=== PATIENT | female | born 1950 | race American Indian/Alaskan Native ===

== ENCOUNTER 2016-11-07 18:46 | Emergency (ER) | payer OTHER ==
[~2016-11-07] VITALS: Ht 154.9 cm; Wt 45.4 kg
[2016-11-07 20:21] VITALS: BP 108/42
[2016-11-07] MEDS ORDERED: HYDROmorphone HCL 2 MG/ML VL IM ONE (21:45)
[2016-11-07] MEDS ORDERED: ONDANSETRON HCL 4 MG/2 ML VIAL IM ONE (21:45)
== END 2016-11-07 22:18 | disposition home or self-care (01) ==
LOC: ER 18:47
DX: S13.9XXA Sprain of joints and ligaments of unspecified parts of neck, initial encounter (principal); S33.5XXA Sprain of ligaments of lumbar spine, initial encounter; S46.912A Strain of unspecified muscle, fascia and tendon at shoulder and upper arm level, left arm, initial encounter; V49.3XXA Car occupant (driver) (passenger) injured in unspecified nontraffic accident, initial encounter; Y93.89 Activity, other specified; Y99.8 Other external cause status; Y92.89 Other specified places as the place of occurrence of the external cause
CPT/HCPCS: 72125; 72131; 73030; 96372; 99284; J1170; J2405

== ENCOUNTER 2017-08-01 23:29 | Inpatient (IN) | payer OTHER, MEDICAID ==
[~2017-08-01] VITALS: Ht 154.9 cm; Wt 51.1 kg
[2017-08-02 03:54] LABS: Basophils # (auto) 0 uL; Basophils % (auto) 0.2 % (0.0-2.0); Eosinophils # (auto) 0.1 uL; Eosinophils % (auto) 0.3 % (0.0-7.0); Hemoglobin 10.8 g/dL (12.2-16.2); Monocytes # (auto) 1.6 uL; Red Cell Distribution Width 16.1 % (11.8-14.3); White Blood Cell 22.7 10^3/uL (4.4-10.8)
[2017-08-02 03:57] LABS: Hematocrit 32.9 % (36.0-46.0); Lymphocytes # (auto) 1.6 uL; Mean Corpuscular Hemoglobin 26.9 pg (28.0-32.0); Mean Corpuscular Hgb Conc. 32.8 g/dL (32.0-36.0); Mean Corpuscular Volume 81.9 fL (80.0-100.0); Monocytes % (auto) 7.1 % (0.0-12.0); Neutrophils # (auto) 19.4 uL; Neutrophils % (auto) 85.4 % (37.0-80.0); Platelet Count (auto) 383 10^3/uL (140-450); Red Blood Cells 4.02 10^6/uL (4.0-5.20)
[2017-08-02] MEDS ORDERED: SODIUM CHLORIDE 0.9% 1,000 ML IV ONE (04:00)
[2017-08-02 04:08] LABS: Anion Gap 9 (5-15); Carbon Dioxide 24 mmol/L (21-32); Chloride 92 mmol/L (98-107); Potassium 3.4 mmol/L (3.5-5.1); Sodium 125 mmol/L (136-145)
[2017-08-02 04:09] LABS: Alanine Aminotransferase 32 U/L (13-56); Albumin 2.3 g/dL (3.4-5.0); Aspartate Aminotransferase 96 U/L (15-37); BUN/Creatinine Ratio 23.7; Blood Alcohol < 3.0 mg/dL (0-5); Blood Urea Nitrogen 28 mg/dL (7-18); GFR African American 59 mL/min; GFR Non-African American 49 mL/min; Glucose 99 mg/dL (74-106); Magnesium 2.4 mg/dL (1.6-2.6)
[2017-08-02 04:13] LABS: Alkaline Phosphatase 128 U/L (45-117); Bilirubin, Total 0.6 mg/dL (0.2-1.0); Total Protein 6.7 g/dL (6.4-8.2)
[2017-08-02] MEDS ORDERED: cefTRIAXone 1GM/10ml IVPUSH 10 ML IV ONE (06:00)
[2017-08-02 10:10] LABS: Urine Bacteria NONE SEEN /hpf (None Seen); Urine Blood 1+ /uL (Negative); Urine Specific Gravity 1.005 (1.001-1.035); Urine WBC 1 /hpf (0 - 5)
[2017-08-02 10:43] LABS: Alcohol, Urine < 3.0 mg/dL (0-5); Amphetamine Screen, Urine NEGATIVE (NEGATIVE); Barbiturate Scree,Urine NEGATIVE (NEGATIVE); Benzodiazephine Screen, Urine NEGATIVE (NEGATIVE); Cannabinoid Screen, Urine NEGATIVE (NEGATIVE); Cocaine Screen, Urine NEGATIVE (NEGATIVE); Opiate Scree,Urine POSITIVE (NEGATIVE); Phencyclidine Screen, Urine NEGATIVE (NEGATIVE)
[2017-08-02] MEDS ORDERED: AZITHROMYCIN 500MG/ 250ML 250 ML IV ONE (10:45)
[2017-08-02] MEDS: SODIUM CHLORIDE 0.9% 1,000 ML IV SCH ×2 (11:05→17:13)
[2017-08-02] MEDS ORDERED: ONDANSETRON HCL 4 MG/2 ML VIAL ONE (15:25)
[2017-08-02] MEDS: ONDANSETRON HCL 4 MG/2 ML VIAL IV PRN (15:31)
[2017-08-02] MEDS: HYDROcodone-ACET 10/325MG TAB PO PRN (19:20)
[2017-08-02 22:00] VITALS: BP 123/54
[2017-08-02] MEDS ORDERED: TEMAZEPAM 15 MG CAP PO PRN (22:15)
[2017-08-02] MEDS ORDERED: HYDROmorphone HCL 2 MG/ML VL IV ONE (22:15)
[2017-08-03] MEDS: HYDROcodone-ACET 10/325MG TAB PO PRN ×2 (01:39→09:02)
[2017-08-03 05:00] VITALS: BP 141/72
[2017-08-03 06:44] LABS: Eosinophils # (auto) 0 uL; Eosinophils % (auto) 0.1 % (0.0-7.0); Lymphocytes # (auto) 1.8 uL; Monocytes # (auto) 1.6 uL; Monocytes % (auto) 6.6 % (0.0-12.0)
[2017-08-03 06:48] LABS: Basophils # (auto) 0.1 uL; Basophils % (auto) 0.3 % (0.0-2.0); Hematocrit 30.6 % (36.0-46.0); Hemoglobin 10.5 g/dL (12.2-16.2); Lymphocytes % (auto) 7.6 % (10.0-50.0); Mean Corpuscular Hemoglobin 27.6 pg (28.0-32.0); Mean Corpuscular Hgb Conc. 34.2 g/dL (32.0-36.0); Mean Corpuscular Volume 80.7 fL (80.0-100.0); Neutrophils # (auto) 20.2 uL; Neutrophils % (auto) 85.4 % (37.0-80.0); Nucleated Red Blood Cells % 0.1 %; Platelet Count (auto) 454 10^3/uL (140-450); Red Cell Distribution Width 16.1 % (11.8-14.3); White Blood Cell 23.6 10^3/uL (4.4-10.8)
[2017-08-03 07:00] LABS: BUN/Creatinine Ratio 28.9; Bilirubin, Total 0.5 mg/dL (0.2-1.0); Calcium 7.8 mg/dL (8.5-10.1); Potassium 3.7 mmol/L (3.5-5.1); Total Protein 5.9 g/dL (6.4-8.2)
[2017-08-03 08:00] VITALS: BP 122/47
[2017-08-03] MEDS ORDERED: cefTRIAXone 1GM/10ml IVPUSH 10 ML IV SCH (09:00)
[2017-08-03] MEDS: AZITHROMYCIN 250 MG TAB PO SCH (09:03)
[2017-08-03] MEDS: SODIUM CHLORIDE 0.9% 1,000 ML IV SCH ×4 (09:07→19:52)
[2017-08-03] MEDS ORDERED: AZITHROMYCIN 500MG/ 250ML 250 ML IV SCH (10:00)
[2017-08-03 12:00] VITALS: BP 117/60
[2017-08-03] MEDS ORDERED: VANCOMYCIN PER PHARMACY 0 MG IV SCH (15:45)
[2017-08-03] MEDS ORDERED: SODIUM CHLORIDE 0.9% 1,000 ML IV ONE (16:00)
[2017-08-03] MEDS: HYDROmorphone HCL 2 MG/ML VL IV PRN ×2 (16:13→20:30)
[2017-08-03] MEDS ORDERED: HYDR-4798 PO (16:35)
[2017-08-03] MEDS ORDERED: ESCI5TAB PO (16:35)
[2017-08-03] MEDS ORDERED: BACL10TA PO (16:35)
[2017-08-03] MEDS ORDERED: GABA300C10 PO (16:35)
[2017-08-03] MEDS ORDERED: TEMA30CA PO (16:35)
[2017-08-03] MEDS ORDERED: MELO1TAB73 PO (16:35)
[2017-08-03 16:59] VITALS: BP 140/65
[2017-08-03] MEDS: VANCOMYCIN 1GM/250ML 250 ML IV SCH (17:32)
[2017-08-03] MEDS: PIPERACILLIN-TAZOB 3.375GM 50 ML IV SCH (18:40)
[2017-08-03 22:16] VITALS: BP 122/55
[2017-08-04] MEDS: PIPERACILLIN-TAZOB 3.375GM 50 ML IV SCH ×4 (00:05→18:06)
[2017-08-04] MEDS: HYDROmorphone HCL 2 MG/ML VL IV PRN ×5 (00:51→19:46)
[2017-08-04] MEDS: SODIUM CHLORIDE 0.9% 1,000 ML IV SCH ×3 (02:32→15:52)
[2017-08-04 05:51] VITALS: BP 127/64
[2017-08-04 06:33] LABS: Basophils # (auto) 0 uL; Basophils % (auto) 0.2 % (0.0-2.0); Eosinophils # (auto) 0 uL; Hematocrit 30.2 % (36.0-46.0); Hemoglobin 10.1 g/dL (12.2-16.2); Lymphocytes # (auto) 1.3 uL; Lymphocytes % (auto) 5.8 % (10.0-50.0); Mean Corpuscular Hemoglobin 27.6 pg (28.0-32.0); Mean Corpuscular Hgb Conc. 33.6 g/dL (32.0-36.0); Mean Corpuscular Volume 81.9 fL (80.0-100.0); Monocytes # (auto) 1.8 uL; Monocytes % (auto) 7.8 % (0.0-12.0); Neutrophils % (auto) 86.2 % (37.0-80.0); Platelet Count (auto) 515 10^3/uL (140-450); Red Blood Cells 3.68 10^6/uL (4.0-5.20); Red Cell Distribution Width 16.4 % (11.8-14.3); White Blood Cell 23.2 10^3/uL (4.4-10.8)
[2017-08-04 06:54] LABS: BUN/Creatinine Ratio 11.3; Bilirubin, Total 0.8 mg/dL (0.2-1.0); Calcium 7.5 mg/dL (8.5-10.1); Potassium 3.1 mmol/L (3.5-5.1)
[2017-08-04 09:00] VITALS: BP 110/61
[2017-08-04] MEDS ORDERED: POTASSIUM CHL 10% (20 MEQ/15ML) 15ml ORAL SOLN PO ONE (10:45)
[2017-08-04] MEDS: VANCOMYCIN 1GM/250ML 250 ML IV SCH (10:47)
[2017-08-04] MEDS: AZITHROMYCIN 250 MG TAB PO SCH (10:51)
[2017-08-04 13:00] VITALS: BP 120/45
[2017-08-04 16:51] LABS: Urine Bacteria NONE SEEN /hpf (None Seen); Urine Blood Negative /uL (Negative); Urine Mucus FEW (None Seen); Urine Specific Gravity 1.012 (1.001-1.035); Urine WBC 1 /hpf (0 - 5)
[2017-08-04 17:00] VITALS: BP 113/55
[2017-08-04] MEDS: ONDANSETRON HCL 4 MG/2 ML VIAL IV PRN (22:04)
[2017-08-04 23:16] VITALS: BP 138/67
[2017-08-05] MEDS: HYDROmorphone HCL 2 MG/ML VL IV PRN ×4 (00:11→21:45)
[2017-08-05] MEDS: SODIUM CHLORIDE 0.9% 1,000 ML IV SCH ×4 (00:12→18:32)
[2017-08-05] MEDS: PIPERACILLIN-TAZOB 3.375GM 50 ML IV SCH ×4 (00:12→18:14)
[2017-08-05] MEDS: ONDANSETRON HCL 4 MG/2 ML VIAL IV PRN ×3 (02:12→11:41)
[2017-08-05] MEDS: VANCOMYCIN 1GM/250ML 250 ML IV SCH (05:03)
[2017-08-05 05:07] VITALS: BP 122/63
[2017-08-05 07:06] LABS: Eosinophils # (auto) 0.1 uL
[2017-08-05 07:10] LABS: Basophils # (auto) 0 uL; Basophils % (auto) 0.2 % (0.0-2.0); Eosinophils % (auto) 0.5 % (0.0-7.0); Hematocrit 29.6 % (36.0-46.0); Hemoglobin 9.6 g/dL (12.2-16.2); Lymphocytes # (auto) 1.4 uL; Lymphocytes % (auto) 6.5 % (10.0-50.0); Mean Corpuscular Hemoglobin 26.8 pg (28.0-32.0); Mean Corpuscular Hgb Conc. 32.5 g/dL (32.0-36.0); Mean Corpuscular Volume 82.5 fL (80.0-100.0); Monocytes % (auto) 9.5 % (0.0-12.0); Neutrophils # (auto) 17.5 uL; Neutrophils % (auto) 83.3 % (37.0-80.0); Platelet Count (auto) 532 10^3/uL (140-450); Red Blood Cells 3.59 10^6/uL (4.0-5.20); Red Cell Distribution Width 16.5 % (11.8-14.3)
[2017-08-05 08:22] LABS: BUN/Creatinine Ratio 12.7; Bilirubin, Total 0.6 mg/dL (0.2-1.0); Calcium 7.6 mg/dL (8.5-10.1); Potassium 3.2 mmol/L (3.5-5.1); Total Protein 5.8 g/dL (6.4-8.2)
[2017-08-05 09:00] VITALS: BP 143/86
[2017-08-05] MEDS: AZITHROMYCIN 250 MG TAB PO SCH (09:37)
[2017-08-05 13:00] VITALS: BP 117/66
[2017-08-05 17:00] VITALS: BP 113/52
[2017-08-05] MEDS ORDERED: POTASSIUM CHL 20 Meq TABLET PO ONE (18:15)
== END 2017-08-05 21:55 | disposition short-term general hospital (02) | DRG 871 ==
LOC: EDBD 23:29 → ER 23:33 → OVERFLOW 23:34 → EAST 08-02 21:10
PROVIDERS: ADMIT Family Medicine; ATTEND Family Medicine
DX: A41.02 Sepsis due to Methicillin resistant Staphylococcus aureus (principal); G93.41 Metabolic encephalopathy; E43 Unspecified severe protein-calorie malnutrition; E86.0 Dehydration; F32.9 Major depressive disorder, single episode, unspecified; F51.04 Psychophysiologic insomnia; G89.4 Chronic pain syndrome; I70.0 Atherosclerosis of aorta; Z68.21 Body mass index [BMI] 21.0-21.9, adult
CPT/HCPCS: 36415; 70450; 71045; 71046; 80053; 80307; 80320; 81001; 83605; 83735; 84484; 85025; 87040; 87077; 87081; 87186; 87400; 93005; 96361; 96374; J2405; J2543